=== PATIENT | female | born 1935 | race Caucasian/White ===

== ENCOUNTER 2019-08-02 08:27 | Day surgery (SDC) | payer OTHER | END 2019-08-02 23:18 | disposition home or self-care (01) | LOC: MOI US 08:27 → MOI MAM 09:00 → MOI US 09:00 | DX: N60.81 Other benign mammary dysplasias of right breast (principal) | CPT/HCPCS: 19083; 77065; 88305; A4648 ==

== ENCOUNTER → 2022-09-28 | Outpatient (CLI) | payer OTHER | LOC: LAB SHORT 07:50 → PLD 07:50 | DX: L57.0 Actinic keratosis (principal) | CPT/HCPCS: 88305 ==

== ENCOUNTER 2023-03-31 10:07 | Emergency (ER) | payer OTHER ==
[~2023-03-31] VITALS: Ht 160 cm; Wt 77.1 kg
[2023-03-31 11:37] LABS: Source, Urine Clean Catch
[2023-03-31 11:38] LABS: BASOPHILS ABSOLUTE AUTO 0.06 K/mm3 (0.00-0.23); BASOPHILS PERCENT AUTO 1 % (0-2); EOSINOPHILS ABSOLUTE AUTO 0.07 K/mm3 (0.00-0.68); EOSINOPHILS PERCENT AUTO 1 % (0-6); Hematocrit 35.8 % (33.0-51.0); Hemoglobin 11.6 g/dL (11.5-16.0); IMMATURE GRAN ABSOLUTE AUTO 0.05 K/mm3 (0.00-0.10); IMMATURE GRAN PERCENT AUTO 1 % (0-1); LYMPHOCYTES ABSOLUTE AUTO 1.56 K/mm3 (0.84-5.20); LYMPHOCYTES PERCENT AUTO 20 % (21-46); MONOCYTES ABSOLUTE AUTO 0.87 K/mm3 (0.16-1.47); MONOCYTES PERCENT AUTO 11 % (4-13); Mean Corpuscular HGB 30.9 pg (26.0-34.0); Mean Corpuscular HGB Conc 32.4 g/dL (31.5-36.5); Mean Corpuscular Volume 96 fL (80-100); Mean Platelet Volume 9.8 fL (9.1-12.4); NEUTROPHILS ABSOLUTE AUTO 5.19 K/mm3 (1.96-9.15); NEUTROPHILS PERCENT AUTO 67 % (41-73); Platelet Count 239 K/mm3 (150-400); RDW Coefficient Variation 13.5 % (11.7-14.2); RDW Standard Deviation 47.2 fL (35.1-46.3); Red Blood Cell Count 3.75 M/mm3 (3.80-5.20)
[2023-03-31] MEDS ORDERED: XARELTO20 M1 PO (11:38)
[2023-03-31] MEDS ORDERED: KLOR-CON 1010 ME9 PO (11:39)
[2023-03-31] MEDS ORDERED: TRELEGY ELLIPT1 EACH IH (11:39)
[2023-03-31] MEDS ORDERED: FUROSEMIDE20 MG PO (11:39)
[2023-03-31] MEDS ORDERED: PRAM.5 PO (11:39)
[2023-03-31 11:40] LABS: Appearance, Urine Cloudy (Clear); Bilirubin, Urine Neg (Neg); Blood, Urine 5+ (Neg); Color, Urine Brown (P-Yellow); Glucose Qualitative, Urine Neg (Neg); Ketones, Urine 1+ (Neg); Leukocyte Esterase, Urine 2+ (Neg); Nitrite, Urine Neg (Neg); Protein, Urine 3+ (Neg); Urobilinogen, Urine 1+ (Normal)
[2023-03-31 11:55] LABS: Red Blood Cells, Urine TNTC /hpf (0-2)
[2023-03-31 11:56] LABS: Bacteria Few /hpf; Squamous Epithelial Cells Few /hpf (Few)
[2023-03-31 11:58] LABS: Albumin, Blood 3.4 g/dL (3.4-5.0); Albumin/Globulin Ratio 0.9 (0.8-1.8); Bilirubin, Total 0.4 mg/dL (0.1-1.0); Bun/Creatinine Ratio 28.2 (12.0-20.0); Calcium, Blood 8.8 mg/dL (8.5-10.1); Creatinine, Blood 0.6 mg/dL (0.40-1.00); Globulin, Blood 3.8 g/dL (2.2-4.0); Potassium, Blood 4.3 mmol/L (3.5-5.5); Total Protein, Blood 7.2 g/dL (6.4-8.2)
[2023-03-31 13:00] VITALS: BP 164/80
== END 2023-03-31 13:30 | disposition home or self-care (01) ==
LOC: ER 10:07
PROVIDERS: Family Medicine
DX: R31.9 Hematuria, unspecified (principal); D68.32 Hemorrhagic disorder due to extrinsic circulating anticoagulants; T45.515A Adverse effect of anticoagulants, initial encounter; I82.401 Acute embolism and thrombosis of unspecified deep veins of right lower extremity; I10 Essential (primary) hypertension; E11.9 Type 2 diabetes mellitus without complications; Z88.2 Allergy status to sulfonamides; Z79.899 Other long term (current) drug therapy
CPT/HCPCS: 80053; 81001; 85025; 87077; 87086; 87186; 99283